=== PATIENT | female | born 1980 | race Caucasian/White ===

== ENCOUNTER 2017-06-29 05:21 | Day surgery (SDC) | payer MEDICAID ==
[2017-06-27 11:26] LABS: HCG SERUM QL NEGATIVE
[2017-06-27 11:27] LABS: ALBUMIN 4.5 G/DL (3.4-5.0); ANION GAP 11 (8-16); BLOOD UREA NITROGEN 7 MG/DL (7-18); BUN/CREATININE RATIO 8.2 (6.6-38.0); CALCIUM 8.8 MG/DL (8.5-10.1); CHLORIDE 104 MMOL/L (99-107); CREATININE 0.85 MG/DL (0.40-0.90); GLUCOSE 86 MG/DL (70-104); POTASSIUM 4.6 MMOL/L (3.5-5.1); SODIUM 140 MMOL/L (135-145); TOTAL CARBON DIOXIDE 24.8 MMOL/L (24-32); eGFR 76 ML/MIN
[2017-06-27 11:40] LABS: BASOPHILS % (AUTO) 0.6 % (0-1); EOSINOPHILS # (AUTO) 0.4 X10'3 (0-0.9); EOSINOPHILS % (AUTO) 5.3 % (0-6); LYMPHOCYTES # (AUTO) 2.2 X10'3 (1.1-4.8); MEAN CORPUSCULAR HEMOGLOBIN 33.9 PG (27.0-31.0); MEAN CORPUSCULAR HGB CONC 35.5 % (33.0-36.5); MEAN CORPUSCULAR VOLUME 95.5 FL (78-98); MEAN PLATELET VOLUME 8.8 FL (7.4-10.4); MONOCYTES # (AUTO) 0.6 X10'3 (0-0.9); MONOCYTES % (AUTO) 8.6 % (2-12); NEUTROPHILS # (AUTO) 4.2 X10'3 (1.8-7.7); NEUTROPHILS % (AUTO) 56.5 % (42-75); PRE OP HEMATOCRIT 43.3 % (35.0-45.0); PRE OP HEMOGLOBIN 15.4 g/dL (12.0-16.0); PRE OP PLATELET COUNT 248 X10'3 (140-440); RED BLOOD COUNT 4.53 X10'6 (4.20-5.60); RED CELL DISTRIBUTION WIDTH 13.1 % (11.5-14.5)
[2017-06-29] VITALS (9 sets, daily range): BP systolic 110–125; BP diastolic 74–82
[~2017-06-29] VITALS: Ht 165.1 cm; Wt 71.0 kg
[~2017-06-29 05:21] MED LIST: ALBU18HF2 INH; CALC600T12 PO; CHOL400T57 PO; HYDR-3973 PO; LYR25C PO; OMEP-50 PO; SIMV20TA5 PO
[2017-06-29] MEDS ORDERED: LIDOcaine 1% (10mg/ml) 2ml vial ONE (05:52)
[2017-06-29] MEDS ORDERED: proCHLORperazine 10 MG/2 ml inj IV PRN (07:35)
[2017-06-29] MEDS ORDERED: ringers solution, lacted 1,000 ML IV SCH (07:35)
[2017-06-29] MEDS ORDERED: morphine 2 MG/ML inj. syringe IV PRN ×2 (07:35)
[2017-06-29] MEDS ORDERED: meperidine/PF 50mg/ml syringe IV PRN ×3 (07:35)
[2017-06-29] MEDS ORDERED: ondansetron/PF 4mg/2ml inj IV PRN (07:35)
[2017-06-29] MEDS ORDERED: midazolam 2 mg/2 ml injection ONE (07:37)
[2017-06-29] MEDS ORDERED: fentaNYL/PF 50MCG/1 ML 2ML syringe ONE (07:37)
[2017-06-29] MEDS ORDERED: LIDOcaine 2% 5ml jelly ONE (07:39)
[2017-06-29] MEDS ORDERED: propofol inj 20 ML IV ONE (07:56)
[2017-06-29] MEDS ORDERED: LIDOcaine 2% (20mg/ml) 5ml vial ONE (07:56)
[2017-06-29] MEDS ORDERED: HYDROcodone/acetaminophen 10/325mg tab PO PRN (09:20)
[2017-06-30] MEDS ORDERED: ringers solution, lacted 1,000 ML IV SCH (05:00)
[2017-06-30] MEDS ORDERED: famotidine 20mg tablet PO ONE (05:30)
== END 2017-06-29 09:37 | disposition home or self-care (01) ==
LOC: PAS 05:21
PROVIDERS: ATTEND Obstetrics & Gynecology
DX: Z30.2 Encounter for sterilization (principal); J45.909 Unspecified asthma, uncomplicated; F32.9 Major depressive disorder, single episode, unspecified; F41.1 Generalized anxiety disorder; F17.210 Nicotine dependence, cigarettes, uncomplicated; K21.9 Gastro-esophageal reflux disease without esophagitis; Z98.890 Other specified postprocedural states; Z88.8 Allergy status to other drugs, medicaments and biological substances; Z72.89 Other problems related to lifestyle; Z79.899 Other long term (current) drug therapy
CPT/HCPCS: 36415; 58670; 80048; 84703; 85025; J2001; J2250; J2704; J3010; J3490; J7120; A7000

== ENCOUNTER 2018-08-04 16:33 | Emergency (ER) | payer MEDICAID ==
[~2018-08-04] VITALS: Ht 165.1 cm; Wt 75.0 kg
[2018-08-04 16:34] VITALS: BP 128/83
[2018-08-04] MEDS ORDERED: dexamethasone sod phosphate 10mg/ml inj IM STA (17:04)
[2018-08-04] MEDS ORDERED: ketorolac trometh inj. 60 MG/2 ML VIAL IM ONE (17:05)
[2018-08-04] MEDS ORDERED: HYDROcodone/acetaminophen 10/325mg tab PO ONE (17:05)
[2018-08-04] MEDS ORDERED: cyclobenzaprine 10mg tablet PO ONE (17:05)
[2018-08-04] MEDS ORDERED: MORP-64 PO (17:07)
[2018-08-04] MEDS ORDERED: CYCL-1 PO ×2 (17:07→17:41)
[2018-08-04] MEDS ORDERED: LURA60TA2 PO (17:07)
== END 2018-08-04 19:13 | disposition home or self-care (01) ==
LOC: ER 16:34
DX: M54.2 Cervicalgia (principal); J45.909 Unspecified asthma, uncomplicated; G89.29 Other chronic pain; M54.9 Dorsalgia, unspecified; Z88.8 Allergy status to other drugs, medicaments and biological substances
CPT/HCPCS: 96372; 99283; J1100; J1885

== ENCOUNTER 2020-02-23 17:35 | Emergency (ER) | payer MEDICAID ==
[~2020-02-23] VITALS: Ht 165.1 cm; Wt 63.6 kg
[~2020-02-23 17:35] MED LIST changes: -CALC600T12 PO; +CALC600T15 PO; +CYCL-1 PO; +LURA60TA2 PO; +MORP-92 PO; -SIMV20TA5 PO
[2020-02-23] MEDS ORDERED: normal saline 1000ML IV soln IVB ONE (18:00)
[2020-02-23] MEDS ORDERED: LORazepam 2 mg/ml vial IV ONE (18:00)
[2020-02-23 18:49] VITALS: BP 104/65
== END 2020-02-23 18:51 ==
LOC: ER 17:36
DX: F15.10 Other stimulant abuse, uncomplicated (principal); R45.1 Restlessness and agitation; R61 Generalized hyperhidrosis; R00.0 Tachycardia, unspecified; J45.909 Unspecified asthma, uncomplicated; G89.29 Other chronic pain; M79.7 Fibromyalgia; F41.9 Anxiety disorder, unspecified; F17.200 Nicotine dependence, unspecified, uncomplicated; Z98.890 Other specified postprocedural states; Z72.89 Other problems related to lifestyle; Z88.8 Allergy status to other drugs, medicaments and biological substances; Z79.899 Other long term (current) drug therapy
CPT/HCPCS: 96374; 99283; J2060; J7030